=== PATIENT | female | born 1970 | race Caucasian/White ===

== ENCOUNTER 2019-04-26 16:02 | Outpatient (REF) | payer BC, SELFPAY ==
--- NOTE | 2019-04-26 15:30 | PAPFT_PTH ---
PATIENT: Marilee Henderson LOC: [facility] U#:[id number] AGE/SX: 48/F ROOM: RE04/26/[address]: SAMMY Urena : 1970 BED: DIS: 04/26/2019 SPEC #: [id number] RECD: 04/26/19 17:41 STATUS: MITA REJosephine #: [id number] JULIANNE: 04/26/19 15:[address]: Jenae Sahni DEPT: [facility] Cytology RECD BY: Renata Ly ENTERED: 04/26/19 17:41 SP TYPE: PAPFT OTHR DR: Deya Kwok V Tissues: 1 - CX/ENDOCX FOR PAP SMEARS Procedures: PAP THIN PREP/UVM Screening HPV DNA PROBE Comments: [id number]
== END 2019-04-26 16:22 ==
LOC: LBN 16:02
PROVIDERS: PCP Family Medicine; Visit Provider Nurse Practitioner Family
DX: Z12.4 Encounter for screening for malignant neoplasm of cervix (principal); Z11.51 Encounter for screening for human papillomavirus (HPV)
CPT/HCPCS: 88142; 87624

== ENCOUNTER 2019-04-30 01:57 | Outpatient (CLI) | payer BC, SELFPAY ==
--- NOTE | 2019-04-30 15:30 | DI.MAMMO_ITS ---
SYMPTOM/DIAGNOSIS: SCREENING, Z12.31 MAMMOGRAMS: Mammograms were interpreted according to the usual protocol including computer analysis with CAD system, tomosynthesis and C view imaging. Comparison is made with 2016. The breasts are composed of heterogeneously dense fibroglandular tissue, breast density, Category C. No suspicious masses or suspicious microcalcifications are seen. There has been no significant change. IMPRESSION: Category 1, negative mammogram. Yearly screening mammography is recommended. [facility] ASSESSMENT OF FINDINGS: Negative. Category 1. Patient will receive a letter notifying them of these results. Bi-RADS category C. The breasts are heterogeneously dense, which may obscure small masses.
== END 2019-04-30 02:17 ==
PROVIDERS: PCP Family Medicine; Visit Provider Nurse Practitioner Family
DX: Z12.31 Encounter for screening mammogram for malignant neoplasm of breast (principal)
CPT/HCPCS: 77063; 77067

== ENCOUNTER 2021-07-17 01:58 | Outpatient (CLI) | payer BC, SELFPAY ==
--- NOTE | 2021-07-17 13:01 | DI.MAMMO_ITS ---
Exam(s) MAMMO SCREENING EXAM: MAMMO SCREENING CLINICAL HISTORY: screening TECHNIQUE: Bilateral full field digital CC and MLO mammographic images were obtained with 3D tomosyn thesis and utilizing computer aided detection (CAD). COMPARISON: Available for comparison. FINDINGS: Masses/Architectural Distortion: None seen. Microcalcifications: No suspicious pleomorphic-type are seen. Skin Thickening/Nipple Retraction: None. IMPRESSION: 1. No significant interval change with no specific features of malignancy noted. 2. Unless there is more urgent need, screening mammography is recommended, as per [employer] guidelines. BI-RADS Category 1 - Negative Breast Density - Category C - Heterogeneously dense Breast density category C or D implies that the patient has dense breast tissue. Dense breast tissue is very common and is not abnormal but dense breast tissue can make it harder to find cancer on a ma mmogram. Also, dense breast tissue may increase their breast cancer risk. This information about the result of the mammogram report was provided to the patient to raise their awareness. Use this report when you speak with the patient about their risks for breast cancer, which includes their family hist ory. At that time, you may recommend for more screening tests (Ultrasound or MRI) as they might be us eful based on their risk. A negative radiographic report should not delay biopsy if a dominant or clinically suspicious mass is present. Up to ten percent of cancers are not identified on mammography. A negative report may reinforce clinical impression. Adenosis and dense breasts may obscure an underlying neoplasm. False positive reports average 6 to 10%. Patient will receive a letter notifying them of these results.
== END 2021-07-17 02:18 ==
PROVIDERS: PCP Family Medicine; Visit Provider Nurse Practitioner Family
DX: Z12.31 Encounter for screening mammogram for malignant neoplasm of breast (principal)
CPT/HCPCS: 77063; 77067

== ENCOUNTER 2022-07-09 15:09 | Outpatient (REF) | payer BC, SELFPAY ==
--- NOTE | 2022-07-09 14:00 | PAPFT_PTH ---
PATIENT: Marilee Henderson LOC: [facility] U#:[id number] AGE/SX: 51/F ROOM: RE07/09/[address]: SAMMY Urena : 1970 BED: DIS: 07/09/2022 SPEC #: [id number] RECD: 07/09/22 17:28 STATUS: MITA REQ #: [id number] JULIANNE: 07/09/22 14:[address]: Jenae Sahni DEPT: [facility] Cytology RECD BY: Renata Ly ENTERED: 07/09/22 17:29 SP TYPE: PAPFT OTHR DR: Deya Kwok V Tissues: 1 - CX/ENDOCX FOR PAP SMEARS Procedures: PAP THIN PREP/UVM Screening HPV DNA PROBE Comments: [id number]
== END 2022-07-09 15:10 | disposition home or self-care (01) ==
LOC: LBN 15:09
PROVIDERS: PCP Family Medicine; Visit Provider Nurse Practitioner Family
DX: Z12.4 Encounter for screening for malignant neoplasm of cervix (principal); Z11.51 Encounter for screening for human papillomavirus (HPV)
CPT/HCPCS: 88142; 87624

== ENCOUNTER → 2022-08-09 00:07 | Outpatient (CLI) | payer BC, SELFPAY ==
--- OUTSIDE RECORDS SUMMARY | 2022-08-09 00:08 | XMS_ITS | Encounter Summary ---
:1970 Author Organization [facility] Address [address] [place] [address] Care Team Providers Name Role Phone Unavailable Primary Care Provider Unavailable Encounter Details Date Type Department Care Team Description 01/28/2006 Results Only [facility] - Rama Marin CNM conversion [address] [place] [address] [place], [place] [id number] [phone] Social History Tobacco Use Types Packs/Day Years Used Date Never Assessed Sex Assigned at Date Recorded Not on file documented as of this encounter Plan of Treatment Not on filedocumented as of this encounter Procedures Procedure Name Priority Date/Time Associated Diagnosis Comme nts CYTOPATHOLOGY Routine 01/28/2006 0:00 EST Results for this procedure are i n the results section . documented in this encounter Results CYTOPATHOLOGY (01/28/2006 0:00 EST) Pathology Report: CYTOPATHOLOGY REPORT [facility] Reports generated via electronic interface contain sarah ginal data; however they are lacking the format of the original re port. Caution should be taken when reading/interpreting unfo rmatted reports. Name: ? TIARA PAULSON ? Accession #: ? [id number] : ? 1970 (Age: 35) ??F ?Collect Date: ? 01/15 Location: ? [facility] ? Receive Date : ? 01/29/2006 Provider: ?RAMA KEVIN CNM Copy to: ? Specimen/Source: ? ThinPrep Pap Test, Cervix/Endocervix, processed on [employer] ThinPrep Imaging System, with manual evaluation Last Menstrual Period: ? 11/24/04 Menstrual/ Status: ? Post : del 08/30/05 Hormonal/Contraceptive Status: ? Intrauterine device Other: ? HPVA - HPV testing requested if ASC-US on the current ThinPrep Pap test. ? SPECIMEN ADEQUACY ? Satisfactory for Evaluation - transformation zone component present GENERAL CATEGORIZATION ? Negative for Intraepithelial Lesion or Malignan cy INTERPRETATION ? Reactive cellular bárbara nges associated with inflammation present (includes repair). ? Document reviewed and electronically signed by: ? DON FORBES MD ? Report Date: ??02/03/2006 17:06 End of Report Specimen Performing Organization Address City/State/ZIP Code Phon e Number [facility] [address] [place] [address] SERVICES [facility] [address] [place] [address] documented in this encounter Visit Diagnoses Not on filedocumented in this encounter
--- OUTSIDE RECORDS SUMMARY | 2022-08-09 00:08 | XMS_ITS | Encounter Summary ---
:1970 Author Organization [facility] Address [address] [place] [address] Care Team Providers Name Role Phone Unavailable Primary Care Provider Unavailable Encounter Details Date Type Department Care Team Description 03/17/2008 Results Only [facility] - Gumaro Lam MD [facility] [address] [facility] [address] [place], [place] [address] [place] [phone] (Wo rk) Social History Tobacco Use Types Packs/Day Years Used Date Never Assessed Sex Assigned at Date Recorded Not on file documented as of this encounter Plan of Treatment Not on filedocumented as of this encounter Procedures Procedure Name Priority Date/Time Associated Diagnosis Comme [facility] SURGICAL PATHOLOGY Routine 03/17/2008 0:00 EDT Re sults for this procedure are i n the results section. documented in this encounter Results SURGICAL PATHOLOGY (03/17/2008 0:00 EDT) Pathology SURGICAL PATHOLOGY REPORT [facility]: Reports generated via electronic interface contain sarah ginal data; LAB however they are lacking the format of the original re port. Caution should be taken when reading/interpreting unfo rmatted reports. Name: ? TIARA PAULSON ? Accession #: ? [id number] ? : ? 1970 (Age: 37) ??F ? Collect Date: ? 03/17/2008 ? Location: ? [facility] ? Receive Date: ? 008 ? Provider: GUMARO JACKSON MD Copy to: ? Final Pathologic Diagnosis: ? Skin of nose, right side, punch biopsy: - Seborrheic keratosis, irritated and inflamed. Microscopic Description: ? Orthohyperkeratosis a nd focal parakeratosis thicken the stratum corneum. There is formation of horn pseudocysts. ??The epidermi s is hyperplastic with acanthosis and papillomatosis. ??The keratinocyt es have a basaloid appearance with squamous eddies in many areas. ??Wi thin the dermis, there is a moderately dense lymphohistiocytic infi ltrate. ??The infiltrate extends into the epidermis with concomitant vacuolar change and keratinocyte necr osis. ??(Dr. Villarreal)/mpl Document reviewed and electronically signed by: CASA VILLARREAL MD Report ??Date: 03/21/2008 16:33 By the signature above, the attending physician certif ies that he/she has personally conducted a gross and/or microscopic examin ation of the described specimens and rendered or confirmed the above diagnosi s. Specimen(s) Received: ? R side of nose Clinical History: ? R side of nose raised , bleeds, there x a few years, larger, more raised, atypical nevus vs early BCC Gross Description: ? Received in formalin labelled Lancercrispin stein d R side of nose is a punch biopsy of skin which measures 0.2 cm in diameter and 0 .2 cm in depth. ??The cutaneous surface is braun-whi te and mottled. ??Submitted intact in one cassette. (Dr. Hernandez)/mpl End of Report Specimen Performing Organization Address City/State/ZIP Code Phon e Number [facility] [address] [place] [address] SERVICES [facility] [address] [place] [address] documented in this encounter Visit Diagnoses Not on filedocumented in this encounter
--- OUTSIDE RECORDS SUMMARY | 2022-08-09 00:08 | XMS_ITS | Encounter Summary ---
:1970 Author Organization [facility] Address [address] [place] [address] Care Team Providers Name Role Phone Unknown, Provider Primary Care Provider Encounter Details Date Type Department Care Team Description 12/05/2015 Results Only [facility]- Jenae Patel, [facility] [phone] [facility] [facility] [place] [address] (Wo rk) Social History Tobacco Use Types Packs/Day Years Used Date Never Assessed Sex Assigned at Date Recorded Not on file documented as of this encounter Plan of Treatment Not on filedocumented as of this encounter Procedures Procedure Name Priority Date/Time Associated Diagnosis Comme nts PAP TEST- RESULT Routine 12/05/2015 0:00 EST Resu lts for this ONLY procedure are i n the results section. documented in this encounter Results PAP TEST- RESULT ONLY (12/05/2015 0:00 EST) Pathology Report: CYTOPATHOLOGY REPORT [facility] Reports generated via electronic interface contain sarah ginal data; SERVICES however they are lacking the format of the original re port. Caution should be taken when reading/interpreting unfo rmatted reports. Name: ? TIARA PAULSON ? Accession #: ? [id number] ? : ? 1970 (Age: [age]) ??F ?Collect Date: ? 12/05/2015 ? Location: ? [facility] ? Receive Date: ? 12/06/19 16 ? Provider: JENAE GARCIA OIL EXPLORATION ENGINEER Copy to: GUMARO JACKSON MD ? Final Report SPECIMEN ADEQUACY ? Satisfactory for Evaluation - transformation zone component present GENERAL CATEGORIZATION ? Negative for Intraepithelial Lesion or Malignan cy ?? Hormonal/Contraceptive status: Intrauterine device: Mi cris Specimen/Source: ??Pap Test, Cervix/Endocervix, ThinPr ep Imaging System with manual evaluation Document reviewed and electronically signed by: ? Dana Dunham, [facility](ASCP) ? Report ??Date: 12/08/2015 10:03 HPV with Pap Test ? Date Ordered: ? 12/08/2015 ? Status: ?? Signed Out ?Date Complete: ? 12/12/2015 ? By: ??Sy stem Interface ? Date Reported: ? 12/12/2015 ? Interpretation RESULT: Positive for high or intermediate risk HPV. E6 OR E7 mRNA from one or more types of HPV types 16,1 8,31, 33,35,39,45,51,52,56,58,59,66, and 68 is detected by statistical geneticist mediated amplification. High and intermediate risk HPV types are associated wi th most squamous intraepithelial lesions and cervical can cers. Comments Document reviewed and electronically signed by: ? System Interface ? Report date: 12/12/2015 By the signature above, the attending physician certif ies that he/she has personally conducted a gross and/or microscopic examin ation of the described specimens and rendered or confirmed the above diagnosi s. End of Report Specimen Performing Organization Address City/State/ZIP Code Phon e Number [facility] [address] [place], [place] [address] SERVICES documented in this encounter Visit Diagnoses Not on filedocumented in this encounter Care Teams Filing Machine Operator Relationship Specialty Start Date End Date Unknown, Provider, PCP - General 09/23/15 04/27/17 documented as of this encounter
--- OUTSIDE RECORDS SUMMARY | 2022-08-09 00:08 | XMS_ITS | Encounter Summary ---
:1970 Author Organization [facility] Address [address] [place] [address] Care Team Providers Name Role Phone Unavailable Primary Care Provider Unavailable Encounter Details Date Type Department Care Team Description 09/04/2010 Results Only [facility] Veronica Murrell, [facility] - [address] [address] Social History Tobacco Use Types Packs/Day Years Used Date Never Assessed Sex Assigned at Date Recorded Not on file documented as of this encounter Plan of Treatment Not on filedocumented as of this encounter Procedures Procedure Name Priority Date/Time Associated Diagnosis Comme nts CYTOPATHOLOGY Routine 09/04/2010 0:00 EDT Results for this procedure are i n the results section . documented in this encounter Results CYTOPATHOLOGY (09/04/2010 0:00 EDT) Pathology Report: CYTOPATHOLOGY REPORT ? [facility] ? [facility] Reports generated via [employer] interface contain original data; ? however they are lacking the format of the original report. ? Caution should be taken when reading/interpreting unformatted reports. ? Name: ? TIARA PAULSON ? Accession #: ? [id number] ? : ? 1970 (Age: 40) ??F ?Collect Date: ? 09/04/2010 ? Location: ? [facility] ? R eceive Date: ? 09/05/2010 ? Provider: VERONICA M VICTORINO TUNNEL INSPECTOR ? Copy to: ? Final Report ? SPECIMEN ADEQUACY ? Satisfactory for Eval uation ? - transformation zone compon ent present ? GENERAL CATEGORIZATION ? Negative for Intraepi thelial Lesion or Malignancy ? Other: Additional clinical i nformation: Last pap 03/14/06 neg. ? Specimen/Source: ??Pap Test, Cervix/Endocervix, ThinPrep Imaging System with ? manual evaluation ? Document reviewed and electr onically signed by: ? Brant Becerril CT( CP) ? Report ??Date: 10/22/ 2010 14:46 ? HPV with Pap Test ? Date Ordered: ? 1 ? Status: ?? Signed Out ?Date Complete: ? 09/12/2010 ? By: ??System Interface ? Date Reported: ? 09/12/2010 ? Interpretation ? RESULT: Negative for HPV typ es 16, 18, 31, 33, 35, 39, 45, 51, 52, ? 56, 58, 59, and 68. ? Comments ? Document reviewed and electr onically signed by: ? System Interface ? Report date: 10//20 10 ? By the signature above, the attending physician certifies that he/she has ? personally conducted a gross and/or microscopic examination of the described ? specimens and rendered or co nfirmed the above diagnosis. ? End of Report ? Specimen Performing Organization Address City/State/ZIP Code Phon e Number [facility] [address] [place] [address] SERVICES [facility] [address] [place] [address] documented in this encounter Visit Diagnoses Not on filedocumented in this encounter
--- OUTSIDE RECORDS SUMMARY | 2022-08-09 00:08 | XMS_ITS | Encounter Summary ---
:1970 Author Organization [facility] Address [address] [place] [address] Care Team Providers Name Role Phone Deya Kwok MD Primary Care Provider Encounter Details Date Type Department Care Team Description 04/26/2019 Results Only [facility]- Jenae Patel, [facility] [phone] [facility] [facility] [place] [address] (Wo rk) Social History Tobacco Use Types Packs/Day Years Used Date Never Assessed Sex Assigned at Date Recorded Not on file documented as of this encounter Plan of Treatment Not on filedocumented as of this encounter Procedures Procedure Name Priority Date/Time Associated Diagnosis Comme nts PAP TEST- RESULT Routine 04/26/2019 0:00 EDT Resu lts for this ONLY procedure are i n the results section. documented in this encounter Results PAP TEST- RESULT ONLY (04/26/2019 0:00 EDT) Pathology Report: CYTOPATHOLOGY REPORT [facility] Reports generated via electronic interface contain sarah ginal data; SERVICES however they are lacking the format of the original re port. Caution should be taken when reading/interpreting unfo rmatted reports. Name: ? TIARA PAULSON ? Accession #: ? [id number] ? : ? 1970 (Age: [age]) ??F ?Collect Date: ? 04/26/2019 ? Location: ? [facility] ? Receive Date: ? 04/27/20 19 ? Provider: JENAE GARCIA COMPOUNDING ASSISTANT Copy to: DEYA KWOK MD ? Final Report SPECIMEN ADEQUACY ? Satisfactory for Evaluation - transformation zone component present GENERAL CATEGORIZATION ? Negative for Intraepithelial Lesion or Malignan cy INTERPRETATION ? Reactive cellular bárbara nges associated with inflammation present (includes repair). Last Menstrual Period: 04/16/19 Hormonal/Contraceptive status: Intrauterine device: Mi cris Previous Gynecologic Pathology: TABITHA I: 2018 Specimen/Source: ??Pap Test, Cervix, ThinPrep Imaging System with manual evaluation Document reviewed and electronically signed by: ? STEVIE AMATO MD ? Report ??Date: 04/30/2019 10:33 HPV with Pap Test ? Date Ordered: ? 04/30/2019 ? Status: ?? Signed Out ?Date Complete: ? 05/03/2019 ? By: ??Sy stem Interface ? Date Reported: ? 05/03/2019 ? Interpretation RESULT: Negative for HPV. No E6 or E7 mRNA is detected from HPV types 16,18,31,3 3,35, 39,45,51,52,56,58,59,66, and 68 by molder operator media chidi amplification. Comments Document reviewed and electronically signed by: ? System Interface ? Report date: 05/03/2019 By the signature above, the attending physician certif ies that he/she has personally conducted a gross and/or microscopic examin ation of the described specimens and rendered or confirmed the above diagnosi s. End of Report Specimen Performing Organization Address City/State/ZIP Code Phon e Number [facility] [address] [place] [address] SERVICES documented in this encounter Visit Diagnoses Not on filedocumented in this encounter Care Teams Market Analysis Director Relationship Specialty Start Date End Date Deya Kwok MD PCP - General 04/28/[address] [place] [address] documented as of this encounter
--- OUTSIDE RECORDS SUMMARY | 2022-08-09 00:08 | XMS_ITS | Encounter Summary ---
:1970 Author Organization [facility] Address [address] [place] [address] Care Team Providers Name Role Phone Unknown, Provider Primary Care Provider Encounter Details Date Type Department Care Team Description 04/24/2017 Hospital Encounter [facility]- Hedy Unknown, Provider, [facility] [address] [place] [address] [place] [address] (Work) [phone] Social History Tobacco Use Types Packs/Day Years Used Date Never Assessed Sex Assigned at Date Recorded Not on file documented as of this encounter Discharge Disposition Disposition Code Departure Means Destination Home or Self Long-Term documented in this encounter Plan of Treatment Not on filedocumented as of this encounter Visit Diagnoses Not on filedocumented in this encounter Care Teams Glue Jointer Operator Relationship Specialty Start Date End Date Unknown, Provider, PCP - General 09/23/15 04/27/17 documented as of this encounter
--- OUTSIDE RECORDS SUMMARY | 2022-08-09 00:08 | XMS_ITS | Encounter Summary ---
:1970 Author Organization [facility] Address [address] [place] [address] Care Team Providers Name Role Phone Unknown, Provider Primary Care Provider Encounter Details Date Type Department Care Team Description 03/20/2017 Results Only [facility]- Jenae Patel, [facility] [phone] [facility] [facility] [address] [place] [address] (Wo rk) Social History Tobacco Use Types Packs/Day Years Used Date Never Assessed Sex Assigned at Date Recorded Not on file documented as of this encounter Plan of Treatment Not on filedocumented as of this encounter Procedures Procedure Name Priority Date/Time Associated Diagnosis Comme nts PAP TEST- RESULT Routine 03/20/2017 0:00 EDT Resu lts for this ONLY procedure are i n the results section. documented in this encounter Results PAP TEST- RESULT ONLY (03/20/2017 0:00 EDT) Pathology Report: CYTOPATHOLOGY REPORT [facility] Reports generated via electronic interface contain sarah ginal data; SERVICES however they are lacking the format of the original re port. Caution should be taken when reading/interpreting unfo rmatted reports. Name: ? TIARA PAULSON ? Accession #: ? [id number] ? : ? 1970 (Age: [age]) ??F ?Collect Date: ? 2016 ? Location: ? [facility] ? Receive Date: ? 7 ? Provider: JENAE GARCIA INTERLINE CLERK Copy to: MARTHA WALKER MD ? Final Report SPECIMEN ADEQUACY ? Satisfactory for Evaluation - transformation zone component present GENERAL CATEGORIZATION ? Negative for Intraepithelial Lesion or Malignan cy INTERPRETATION ? Reactive cellular bárbara nges associated with inflammation present (includes repair). Hormonal/Contraceptive status: Intrauterine device: Mi cris Previous Gynecologic Pathology: HPV: + 2016 Specimen/Source: ??Pap Test, Cervix, ThinPrep Imaging System with manual evaluation Document reviewed and electronically signed by: ? ENRIKE ALAS MD ? Report ??Date: 04/01/2017 16:48 HPV with Pap Test ? Date Ordered: ? 04/01/2017 ? Status: ?? Signed Out ?Date Complete: ? 04/02/2017 ? By: ??Sy stem Interface ? Date Reported: ? 04/02/2017 ? Interpretation RESULT: Positive for high or intermediate risk HPV. E6 OR E7 mRNA from one or more types of HPV types 16,1 8,31, 33,35,39,45,51,52,56,58,59,66, and 68 is detected by preflight inspector mediated amplification. High and intermediate risk HPV types are associated wi th most squamous intraepithelial lesions and cervical can cers. Comments Document reviewed and electronically signed by: ? System Interface ? Report date: 04/02/2017 By the signature above, the attending physician certif ies that he/she has personally conducted a gross and/or microscopic examin ation of the described specimens and rendered or confirmed the above diagnosi s. End of Report Specimen Performing Organization Address City/State/ZIP Code Phon e Number [facility] [address] [place] [address] SERVICES documented in this encounter Visit Diagnoses Not on filedocumented in this encounter Care Teams Perl Programmer Relationship Specialty Start Date End Date Unknown, Provider, PCP - General 09/23/15 04/27/17 documented as of this encounter
--- OUTSIDE RECORDS SUMMARY | 2022-08-09 00:08 | XMS_ITS | Encounter Summary ---
:1970 Author Organization [facility] Address [address] [place] [address] Care Team Providers Name Role Phone Deya Kwok MD Primary Care Provider Encounter Details Date Type Department Care Team Description 04/23/2018 Results Only [facility]- Jenae Patel, [facility] [phone] [facility] [place] [address] (Wo rk) Social History Tobacco Use Types Packs/Day Years Used Date Never Assessed Sex Assigned at Date Recorded Not on file documented as of this encounter Plan of Treatment Not on filedocumented as of this encounter Procedures Procedure Name Priority Date/Time Associated Diagnosis Comme nts PAP TEST- RESULT Routine 04/23/2018 0:00 EDT Resu lts for this ONLY procedure are i n the results section. documented in this encounter Results PAP TEST- RESULT ONLY (04/23/2018 0:00 EDT) Pathology Report: CYTOPATHOLOGY REPORT [facility] Reports generated via electronic interface contain sarah ginal data; SERVICES however they are lacking the format of the original re port. Caution should be taken when reading/interpreting unfo rmatted reports. Name: ? TIARA PAULSON ? Accession #: ? [id number] ? : ? 1970 (Age: [age]) ??F ?Collect Date: ? 2017 ? Location: ? [facility] ? Receive Date: ? 8 ? Provider: JENAE GARCIA BOX LINING MACHINE FEEDER Copy to: DEYA KWOK MD ? Final Report SPECIMEN ADEQUACY ? Satisfactory for Evaluation - transformation zone component present GENERAL CATEGORIZATION ? Epithelial Cell Abnormality INTERPRETATION ? Squamous Cell Abnormality - Low grade squamous intraepithelial lesion (LSIL). EDUCATIONAL NOTES/RECOMMENDATIONS ? [facility] recommends foll owing ASCCP's 2012 Updated Consensus Guidelines for the Management of Abnormal Cervical Cancer Screening T ests and Cancer Precursors (JLGTD, 2013; 17(5):S1-S27). ??Conse nsus guidelines are available online at www.asccp.org. Hormonal/Contraceptive status: Intrauterine device Treatment History: Biopsy: Neg 2017 ECC: Neg 2017 Infection History: Pos for HPV: 2016, 2017 Specimen/Source: ??Pap Test, Cervix, ThinPrep Imaging System with manual evaluation Document reviewed and electronically signed by: ? HELIO TOPETE MD ? Report ??Date: 04/30/2018 11:23 HPV with Pap Test ? Date Ordered: ? 04/30/2018 ? Status: ?? Signed Out ?Date Complete: ? 05/01/2018 ? By: ??Sy stem Interface ? Date Reported: ? 05/01/2018 ? Interpretation RESULT: POSITIVE FOR HIGH OR INTERMEDIATE RISK HPV. E6 OR E7 mRNA from one or more types of HPV types 16,1 8,31, 33,35,39,45,51,52,56,58,59,66, and 68 is detected by chair mender mediated amplification. High and intermediate risk HPV types are associated wi th most squamous intraepithelial lesions and cervical can cers. Comments Document reviewed and electronically signed by: ? System Interface ? Report date: 05/01/2018 By the signature above, the attending physician certif ies that he/she has personally conducted a gross and/or microscopic examin ation of the described specimens and rendered or confirmed the above diagnosi s. End of Report Specimen Performing Organization Address City/State/ZIP Code Phon e Number [facility] [address] [place] [address] SERVICES documented in this encounter Visit Diagnoses Not on filedocumented in this encounter Care Teams Lay Out Technician Relationship Specialty Start Date End Date Deya Kwok MD PCP - General 04/28/17 [address] [place], [place] [id number] documented as of this encounter
--- OUTSIDE RECORDS SUMMARY | 2022-08-09 00:08 | XMS_ITS | Encounter Summary ---
:1970 Author Organization [facility] Address [address] [place] [address] Care Team Providers Name Role Phone Deya Kwok MD Primary Care Provider Encounter Details Date Type Department Care Team Description 04/23/2018 Hospital Encounter [facility]- Hdey Unknown, Provider, Benitez Ceres 0 [facility] [phone] [place] [address] (Work) [phone] Social History Tobacco Use Types Packs/Day Years Used Date Never Assessed Sex Assigned at Date Recorded Not on file documented as of this encounter Discharge Disposition Disposition Code Departure Means Destination Home or Self Jail documented in this encounter Plan of Treatment Not on filedocumented as of this encounter Visit Diagnoses Not on filedocumented in this encounter Care Teams Meat Butcher Relationship Specialty Start Date End Date Deya Kwok MD PCP - General 04/28/17 [address] [place] [address] documented as of this encounter
--- OUTSIDE RECORDS SUMMARY | 2022-08-09 00:08 | XMS_ITS | Encounter Summary ---
:1970 Author Organization [facility] Address [address] [place] [address] Care Team Providers Name Role Phone Deya Kwok MD Primary Care Provider Encounter Details Date Type Department Care Team Description 05/12/2018 Results Only [facility]- Hui Caballero MD [phone] [address] [place], [place] [phone] (Wo rk) Social History Tobacco Use Types Packs/Day Years Used Date Never Assessed Sex Assigned at Date Recorded Not on file documented as of this encounter Plan of Treatment Not on filedocumented as of this encounter Procedures Procedure Name Priority Date/Time Associated Diagnosis Comme [facility] SURGICAL PATHOLOGY Routine 05/12/2018 21:22 Resul ts for this EDT procedure are i n the results section. documented in this encounter Results SURGICAL PATHOLOGY (05/12/2018 21:22 EDT) Pathology SURGICAL PATHOLOGY REPORT [facility] [[email or web address]] MEDICAL Report: Reports generated via electronic interface conta in original data; CENTER LABORATORY however they are lacking the format of the original re port. SERVICES Caution should be taken when reading/interpreting unfo rmatted reports. Name: ? TIARA PAULSON ? Accession #: ? [id number] ? : ? 1970 (Age: 6 5) ??F ? Collect Date: ? 05/12/2018 ? Location: ? [facility] ? Receive Date: ? 05/12/20 18 ? Provider: HUI WHITMORE MD Copy to: DEYA KWOK MD ? Final Pathologic Diagnosis: A. ENDOCERVIX, CURETTAGE: - Fragments of benign endocervical mucosa. B. CERVIX, 6 O'CLOCK, BIOPSY: - Low grade squamous intraepithelial lesion (TABITHA I). S ee comment. Comment: Deeper levels have been examined on A1 and B1. Represe ntative slides of this case were reviewed at intradepartmental consultation c onference. ?? Dr. Woodward 05/14/2018 4:47 PM Document reviewed and electronically signed by: MARIA E KHAN MD Report ??Date: 05/15/2018 14:09 By the signature above, the attending physician certif ies that he/she has personally conducted a gross and/or microscopic examin ation of the described specimens and rendered or confirmed the above diagnosi s. Specimen(s) Received: A. ??Endocervical curettage B. ??6 o'clock cervical biopsy Clinical History: LSIL Pap Gross Description: A. ?Received in formalin labelled with proper p atient identification (initials Y, P) and ECC is an aggregate of blood-tinged mucus (2.0 x 1.5 x 0.3 cm). Submitted in toto in block A1. B. ?Received in in formalin label led with proper patient identification (initials Y, P) and cervix six o'clock biopsy is an aggregate of soft braun-pink tissue measuring 0.4 x 0.3 x 0.1 cm. Specimen is submitted entirely in block B1 following filtration. JAY Mohan (ASCP) 05/13/2018 8:06 AM End of Report Specimen Performing Organization Address City/State/ZIP Code Phon e Number [facility] [address] [place] [address] SERVICES documented in this encounter Visit Diagnoses Not on filedocumented in this encounter Care Teams Wirer Relationship Specialty Start Date End Date Deya Kwok MD PCP - General 04/28/[address] [place] [address] documented as of this encounter
--- OUTSIDE RECORDS SUMMARY | 2022-08-09 00:08 | XMS_ITS | Encounter Summary ---
:1970 Author Organization [facility] Address [address] [place] [address] Care Team Providers Name Role Phone Deya Kwok MD Primary Care Provider Encounter Details Date Type Department Care Team Description 07/10/2022 Lab Requisition [facility] Jenae Sahni E ncounter for other Pathology & FOUNDER AND CHIEF EXECUTIVE OFFICER general examination Laboratory Medicine [address] [place], [place] [address] [facility] [phone] [place], [place] [id number] Social History Tobacco Use Types Packs/Day Years Used Date Never Assessed Sex Assigned at Date Recorded Not on file documented as of this encounter Plan of Treatment Not on filedocumented as of this encounter Procedures Procedure Name Priority Date/Time Associated Comments Diagnosis PAP TEST Today 07/09/2022 2:00 Encounter for other Resul ts for this EDT general examination procedur e are in the results section. HUMAN PAPILLOMAVIRUS Today 07/09/2022 2:00 Encounter for oth er Results for this (HPV) DETECTION-HIGH EDT general examination procedure are in RISK TYPES the results section. documented in this encounter Results HUMAN PAPILLOMAVIRUS (HPV) DETECTION-HIGH RISK TYPES (07/09/2022 2:00 EDT) Human Papillomavirus NegativeComment: No Negative [facility] (HPV) Detection-High E6 or E7 mRNA is CENTER LABORATOR Y Types detected from HPV SERVICES types 16,18,31,33,35,39,45 ,51,52,56,58,59,66, and 68 by supervisor furnace room mediated amplification. Specimen Pap Test - Cervix and/or Endocervix Performing Organization Address City/State/ZIP Code Phon e Number [facility] [address] [place] [address] SERVICES PAP TEST (07/09/2022 2:00 EDT) Specimens A. Cervix and/or [facility] Endocervix , ThinPrep CENTER Imaging System with LABORATORY Manual Evaluation SERVICES Specimen Adequacy Satisfactory for [facility] MEDICAL Evaluation - CENTER transformation zone LABORATORY component present SERVICES General Negative for [facility] intraepithelial [place] lesion or malignancy LABORATORY SERVICES Attestation . [facility] CENTER signed by SLOANE Wen CT(ASCP) o n SERVICES 07/18/2022 at 201 3 Clinical History See below [facility] SERVICES HPV The result for the Human Pap illomavirus (HPV) Detection-High Risk Types is Negative. No E6 or E7 mRNA is detected from HPV types 16,18,31,33,35,39,45,51,52,56,58,59,66, and 68 by supervisor furnace room mediated [facility] amplification.Testing was pe rformed on specimen [id number] and was resulted on 07/18/20221957 EDT by RAUL, LAB INSTRUMENT RESULTS IN [facility] SERVICES Performing Lab [facility] SERVICES Scanned Images [facility] SERVICES Specimen Pap Test - Cervix and/or Endocervix Performing Organization Address City/State/ZIP Code Phon e Number [facility] [address] [place] [address] SERVICES documented in this encounter Visit Diagnoses Diagnosis Encounter for other general examination documented in this encounter Care Teams Textile Engraver Relationship Specialty Start Date End Date Deya Kwok MD PCP - General 04/28/[address] [place] [address] documented as of this encounter
--- OUTSIDE RECORDS SUMMARY | 2022-08-09 00:08 | XMS_ITS | Clinical Summary ---
:1970 Author Organization [facility] Address [address] [place] [address] Care Team Providers Name Role Phone Deya Kwok MD Primary Care Provider Encounters Date Type Specialty Care Team Description 07/10/2022 Lab Requisition Clinical Laboratory Jenae Sahni for other E, MECHANICAL FACILITIES TECHNICIAN general examina tion from Last 3 Months Social History Tobacco Use Types Packs/Day Years Used Date Never Assessed Sex Assigned at Date Recorded Not on file Plan of Treatment Health Maintenance Due Date Last Done Comments Hepatitis C Screen 1970 COVID-19 Vaccine (#1) 01/14/1973 Procedures Procedure Name Priority Date/Time Associated Comments Diagnosis PAP TEST Today 07/09/2022 2:00 Encounter for other Resul ts for this EDT general examination procedur e are in the results section. HUMAN PAPILLOMAVIRUS Today 07/09/2022 2:00 Encounter for oth er Results for this (HPV) DETECTION-HIGH EDT general examination procedure are in RISK TYPES the results section. from Last 3 Months Results PAP TEST (07/09/2022 2:00 EDT) Specimens A. Cervix and/or [facility] Endocervix , ThinPrep CENTER Imaging System with LABORATORY Manual Evaluation SERVICES Specimen Adequacy Satisfactory for [facility] MEDICAL Evaluation - CENTER transformation zone LABORATORY component present SERVICES General Negative for [facility] intraepithelial [place] lesion or malignancy LABORATORY SERVICES Attestation . [facility] Electronically CENTER signed by SLOANE Wen CT(ASCP) o n SERVICES 07/18/2022 at 201 3 Clinical History See below [facility] SERVICES HPV The result for the Human Pap illomavirus (HPV) Detection-High Risk Types is Negative. No E6 or E7 mRNA is detected from HPV types 16,18,31,33,35,39,45,51,52,56,58,59,66, and 68 by metal furniture assembly supervisor mediated [facility] MEDICAL amplification.Testing was pe rformed on specimen [id number] and was resulted on 07/18/20221957 EDT by RAUL, LAB INSTRUMENT RESULTS [facility] SERVICES Performing Lab [facility] SERVICES Scanned Images [facility] SERVICES Specimen Pap Test - Cervix and/or Endocervix Performing Organization Address City/State/ZIP Code Phon e Number [facility] [address] [place] [address] SERVICES HUMAN PAPILLOMAVIRUS (HPV) DETECTION-HIGH RISK TYPES (07/09/2022 2:00 EDT) Human Papillomavirus NegativeComment: No Negative [facility] (HPV) Detection-High E6 or E7 mRNA is CENTER LABORATOR Y Types detected from HPV SERVICES types 16,18,31,33,35,39,45 ,51,52,56,58,59,66, and 68 by metal furniture assembly supervisor mediated amplification. Specimen Pap Test - Cervix and/or Endocervix Performing Organization Address City/State/ZIP Code Phon e Number [facility] [address] [place] [address] SERVICES from Last 3 Months Care Teams Gas Well Pumper Relationship Specialty Start Date End Date Deya Kwok MD PCP - General 04/28/[address] [place] [address]
--- OUTSIDE RECORDS SUMMARY | 2022-08-09 00:08 | XMS_ITS | Encounter Summary ---
:1970 Author Organization [facility] Address [address] [place] [address] Care Team Providers Name Role Phone Deya Kwok MD Primary Care Provider Encounter Details Date Type Department Care Team Description 05/12/2018 Hospital Encounter [facility]- Hedy Unknown, Provider, Benitez Fishers 0 [facility] [phone] [place] [address] (Work) [phone] Social History Tobacco Use Types Packs/Day Years Used Date Never Assessed Sex Assigned at Date Recorded Not on file documented as of this encounter Discharge Disposition Disposition Code Departure Means Destination Home or Self Long-Term documented in this encounter Plan of Treatment Not on filedocumented as of this encounter Visit Diagnoses Not on filedocumented in this encounter Care Teams Case Manager Specialist Relationship Specialty Start Date End Date Deya Kwok MD PCP - General 04/28/17 [address] [place] [address] documented as of this encounter
--- OUTSIDE RECORDS SUMMARY | 2022-08-09 00:08 | XMS_ITS | Encounter Summary ---
:1970 Author Organization [facility] Address [address] [place] [address] Care Team Providers Name Role Phone Unknown, Provider Primary Care Provider Encounter Details Date Type Department Care Team Description 04/24/2017 Results Only [facility]- PRISM Mike Robb MD [phone] [address] [place] [address] Social History Tobacco Use Types Packs/Day Years Used Date Never Assessed Sex Assigned at Date Recorded Not on file documented as of this encounter Plan of Treatment Not on filedocumented as of this encounter Procedures Procedure Name Priority Date/Time Associated Diagnosis Comme [facility] SURGICAL PATHOLOGY Routine 04/24/2017 9:01 EDT Re sults for this procedure are i n the results section. documented in this encounter Results SURGICAL PATHOLOGY (04/24/2017 9:01 EDT) Pathology Report: SURGICAL PATHOLOGY REPORT [facility] Reports generated via electronic interface contain sarah ginal data; LABORATORY however they are lacking the format of the original re port. SERVICES Caution should be taken when reading/interpreting unfo rmatted reports. Name: ? TIARA PAULSON ? Accession #: ? [id number] ? : ? 1970 (Age: 6 4) ??F ? Collect Date: ? 04/24/2017 ? Location: ? [facility] ? Receive Date: ? 7 ? Provider: MIKE ROBB MD Copy to: MARTHA WALKER MD ? Final Pathologic Diagnosis: A. ENDOCERVIX, CURETTAGE: - Superficial strips of benign endocervical cells. B. ECTOCERVIX, 5 O'CLOCK, BIOPSY: - Benign transformation zone mucosa with acute and chr onic cervicitis and reactive changes. Document reviewed and electronically signed by: AIDE OLIVARES MD Report ??Date: 04/29/2017 12:45 By the signature above, the attending physician certif ies that he/she has personally conducted a gross and/or microscopic examin ation of the described specimens and rendered or confirmed the above diagnosi s. Specimen(s) Received: A. ??ECC B. ??5 o'clock ectocervical bx Clinical History: 12/05/2015 and 03/20/2017 Paps (+) HPV; LMP: 04/08/2017; c olposcopy Gross Description: A. ?Received in formalin labelled with proper p atient identification (initials Y, P) and endocer vical curettage is an aggregate of braun clear mucus (1.5 x 1.5 x 0.3 cm). Submitted in toto in A1. B. ?Received in formalin labelled with proper p atient identification (initials Y, P) and ectocer vical bx at 5 o'clock is a single braun-white tissue fragment (0.5 x 0.2 x 0.2 cm). Submitted intact in B1. JAY Gaona (ASCP) 04/25/2017 11:03 AM End of Report Specimen Performing Organization Address City/State/ZIP Code Phon e Number [facility] [address] [place] [id number] SERVICES documented in this encounter Visit Diagnoses Not on filedocumented in this encounter Care Teams Conference And Event Organiser Relationship Specialty Start Date End Date Unknown, Provider, PCP - General 09/23/15 04/27/17 documented as of this encounter
--- NOTE | 2022-08-09 08:15 | DI.MAMMO_ITS ---
Exam(s) MAMMO SCREENING EXAM: MAMMO SCREENING CLINICAL HISTORY: screening,z12.39 TECHNIQUE: Mammograms were interpreted according to the usual protocol including computer analysis w [employer] CAD system, tomosynthesis and C-view imaging. COMPARISON: 2015 through 2020 FINDINGS: The breasts are composed of heterogeneously dense fibroglandular densities, Breast Density category C . No suspicious masses or suspicious microcalcifications are seen. No skin thickening or abnormal axillary lymph nodes are seen. There has been no significant change from prior exams. IMPRESSION: BI-RADS Category 1, Negative mammogram. Yearly screening mammography is recommended. Breast Density Category C, heterogeneously Dense. The mammogram demonstrates the patient's breast tissue is dense. Dense breast tissue is very common a nd is not abnormal but dense breast tissue can make it harder to find cancer on a mammogram. Also, de nse breast tissue may increase breast cancer risk. This information about the result of the mammogram report was provided to the patient to raise their awareness. Use this report when you speak with the patient about their risks for breast cancer, which includes their family history. At that time, you may recommend additional screening tests (Ultrasound or MRI) as they might be useful based on their r isk. A negative radiographic report should not delay biopsy if a dominant or clinically suspicious mass is present. Up to ten percent of cancers are not identified on mammography. A negative report may reinforce clinical impression. Adenosis and dense breasts may obscure an underlying neoplasm. False positive reports average 6 to 10%.
== END ==
PROVIDERS: PCP Family Medicine; Visit Provider Nurse Practitioner Family
DX: Z12.31 Encounter for screening mammogram for malignant neoplasm of breast (principal); R92.8 Other abnormal and inconclusive findings on diagnostic imaging of breast
CPT/HCPCS: 77063; 77067

== ENCOUNTER 2022-09-17 16:08 | Outpatient (REF) | payer BC, SELFPAY ==
[2022-09-17 20:30] LABS: ALT 29 U/L (14-59); AST 27 U/L (15-37); Albumin 4.2 g/dL (3.4-5.0); Alkaline Phosphatase 65 U/L (46-116); Anion Gap 6.7 mmol/L (3-11); BUN 12 mg/dL (7-18); Bilirubin, Total 0.7 mg/dL (0.2-1.0); CO2 29.3 mmol/L (21.0-32.0); CREATININE 1.2 mg/dL (0.55-1.02); Calcium 9.4 mg/dL (8.5-10.1); Calculated LDL 101 mg/dL (<100); Chloride 107 mmol/L (98-107); Cholesterol 204 mg/dL (<200); Estimated GFR 55.15 (mL/min/1.73m2); Glucose 96 mg/dL (74-106); HDL Cholesterol 97 mg/dL (40-60); Potassium 4.1 mmol/L (3.5-5.1); Sodium 143 mmol/L (136-145); Total Protein 7.7 g/dL (6.4-8.2); Triglyceride 30 mg/dL (<150)
== END 2022-09-17 16:09 | disposition home or self-care (01) ==
LOC: NCHCN 16:08
PROVIDERS: PCP Family Medicine; Visit Provider Physician Assistant Medical
DX: Z00.8 Encounter for other general examination (principal)
CPT/HCPCS: 80053; 80061

== ENCOUNTER 2022-11-25 18:02 | Outpatient (REF) | payer BC, SELFPAY | END 2022-11-25 18:03 | disposition home or self-care (01) | LOC: LBN 18:02 | PROVIDERS: PCP Family Medicine; Visit Provider Nurse Practitioner Women's Health | DX: R30.0 Dysuria (principal); N76.0 Acute vaginitis | CPT/HCPCS: 87086; 87480; 87510; 87660 ==

== ENCOUNTER 2023-02-06 10:55 | Day surgery (SDC) | payer BC, SELFPAY ==
--- NOTE | 2023-02-05 20:56 | W.PREOPHP ---
Assessment and Plan Assessment and plan (1) Screening for colon cancer: Status: Acute Assessment and plan: We discussed the role of screening colonscopy as part of routine health maintenance as well as the risks and benefits of the proceedure. We will proceed with colonoscopy as planned. History of Present Illness History of Present Illness Chief Complaint: Screening colonoscopy Narrative: Pt seen at the request of PCP regarding colon cancer screening. Pt has never had colon cancer screening before.? They denies problems with constipation or diarrhea.? They deny any pain or difficulty with bowel movements, or rectal bleeding.? There is no family history of any colon cancer.? Pt has not had any unexplained weight loss.? Their appetite is good.? ?They deny heart, lung, or kidney problems. They are not having heartburn or indigestion. They have not had any prior colo-rectal surgery.? The patient? has not had a prior [place].? No anesthesia in the past.? MOther had bowel issue- intestines flipped over, not cancer (probably a volvulus). ? Occasional hemorrhoids issues-? occ pain and bleeding.? This has been going on since the of her children. 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 Maternal Aunt Breast cancer paternal Social History Smoking/Tobacco Use Status: Never Smoking risk assessment performed?: Yes Alcohol Intake: current Alcohol Intake frequency: 0-2 drinks per day Drug use: Occasionally Substance use type: marijuana Do you feel safe at home: Yes Do you feel safe in your relationship?: Yes History History 3 Para 3 Hx # Term Pregnancies Multiple births Hx # Pregnancies Ectopic pregnancies AB induced Hx Number of Living Children AB spontaneous Meds Allergies and Home Medications Allergies Allergy/AdvReac Type Severity Reaction Status Date / Time No Known Allergies Allergy Verified 02/06/23 12:33 Exam Const General: cooperative, healthy appearing and comfortable Orientation: awake and oriented x3 Eyes General: appearance normal, both eyes and all related structures Conjunctivae: conjunctivae normal Sclera: sclerae normal Resp Effort & Inspection: normal respiratory effort and able to speak in complete sentences Auscultation: clear to auscultation bilaterally Cardio Jugular venous pressure: no JVD Rate: regular rate Rhythm: regular rhythm GI Inspection: non-distended Palpation: soft, no guarding, no hernias and nontender Auscultation: normal bowel sounds Skin General skin exam: normal turgor Neuro General: patient alert, patient awake and patient oriented x3 Cognition: normal cognition Extrem Right lower extremity: no edema Left lower extremity: no edema
--- NOTE | 2023-02-05 20:57 | PDOC.DSDIS_ITS ---
Date of service: 02/06/23 Time of Service: 14:14 Discharge Plan Disposition Patient Disposition: Home Condition: Good Discharge Details Reason For Visit: Screening colonoscopy Attending Provider: Tano Dickens Primary Care Provider: Deya Kwok V Discharge Instructions Additional Instructions: Cleo, your screening colonoscopy today was negative. Your prep was excellent. Everything went very smoothly. Again, I hope you except my apologies for the wait. You should have another screening colonoscopy in 10 years. If you have any questions, please feel free to call me at any time. 1. If tolerated, consume a soft, low fiber diet for 1-2 days. 2. Do not drive, drink alcohol, operate machinery, make critical decisions, or do activities that require coordination or balance for 24 hours. 3. Because air was put into your colon during the procedure, expelling air from your rectum (passing gas or farting) is normal. 4. You may not have a bowel movement for 1-3 days because of the colonoscopy pre p. This is normal. 5. Go directly to the emergency room if you notice any of the following: Develop chills (warm to touch), or if you have a thermometer and your temperature is above 101 Difficulty breathing or difficultly swallowing Persistent vomiting Severe abdominal pain, other than gas cramps Severe chest pain Black, tarry stools Any bleeding ? exceeding one tablespoon 6. Call your physician if the site where your intravenous was started becomes red, swollen, painful, and warm to touch. 7. Your physician has reviewed your pre-procedure medications. Please continue to take those medications as previously ordered. You will be given specific information/education regarding any changes to your medications before leaving. Activity:: Activity as Tolerated Diet:: As Tolerated Discharge Orders Discharge Orders: Discharge Order (Routine); Ordered 02/05/23 Ordered By: Tano Dickens DS: Diagnosis Discharge Diagnosis (1) Screening for colon cancer: Status: Acute Asessment and Plan: Negative screening colonoscopy. Follow-up in 10 years
--- NOTE | 2023-02-05 20:58 | W.COLOREPORT ---
Date of service: 02/06/23 Time of Service: 14:17 Colonoscopy Report Date of procedure: 02/06/23 Pre-op diagnosis general: Screening colonoscopy Post-op diagnosis procedure note: other (Negative screening colonoscopy) Procedure: Colonoscopy Surgeon: Tano Dickens Anesthesia Type: General:No Airway Estimated blood loss (mL): 0 Pathology: none sent Complications: None Disposition: same day Indications: Marilee is a 52 year old woman here for a screening colonoscopy as part of routine health maintenance. Prep: Miralax/Dulcolax Procedure Start Time: 13:43 Procedure End Time: 14:05 Retraction Time: 16 Findings: Normal colonoscopy Procedure Description: After the induction of monitored anesthetic care, and with the patient in left lateral decubitus position, I began by performing an external anorectal exam.? Perineum and skin were normal, as was the anal verge.? There was no evidence of external hemorrhoids.? Next, I performed a digital rectal exam.? I did not appreciate any abnormal findings.? Next, I advanced a colonoscope into the rectal vault.? I performed retroflexion.? I did not see any internal hemorrhoids.? Using insufflation, I then advanced the colonoscope beyond the rectal folds and into the sigmoid colon before advancing towards the cecum.? The quality of the prep was outstanding.? The scope was noted to be in the cecum by identification of the ileocecal valve and appendiceal orifice.? I then began withdrawing the colonoscope using repeated irrigation as necessary for full evaluation of the colonic mucosa. ?Once the scope was withdrawn to the level of the rectum, great care was taken to examine portions of the rectal folds.? Finally, the scope was withdrawn and the patient was brought to the same-day surgery recovery unit as the anesthetic wore off. I did not see any signs of polyps or tumors, or any other abnormalities such as hemorrhoids or diverticulosis. The findings and instructions were shared with the patient prior to discharge.
[2023-02-06 12:34] VITALS: BP 103/71; PULSE 75; RESP 16; TEMP 36.1; O2SAT 100
[2023-02-06] MEDS: Lactated Ringers 1,000 ML 80 ML IV (12:48)
--- NOTE | 2023-02-06 13:18 | W.ANESPRE ---
General Info Date of Service Date Performed: 02/06/23 Height: 5 ft 6 in Weight: 68.9 kg Body Mass Index (BMI): 24.5 Surgical Procedure: Operation Date: 02/06/23 12:40 Proposed Procedure Side Surgeon p Colonoscopy Tano Dickens MD s Possible Internal Hemorrhoid Banding Tano Dickens MD Meds Allergies and Home Medications Allergies Allergy/AdvReac Type Severity Reaction Status Date / Time No Known Allergies Allergy Verified 02/06/23 12:33 Current Visit Medications: Current Medications Generic Name Dose Route Start Last Admin Trade Name Freq PRN Reason Stop Dose Admin Hyoscyamine Sulfate 0.125 mg 02/05/23 21:00 Hyoscyamine 0.125 Mg Sl/Oral/Chew SL DIRECTED PRN Ringer's Solution 1,000 mls @ 80 mls/hr 02/06/23 06:00 02/06/23 12:48 IV 03/07/23 23:59 80 mls/hr INFUSION CAMILA Administration IV Miscellaneous Supplies 1 each 02/06/23 06:00 Iv Access IV 03/07/23 23:59 DIRECTED CAMILA Ondansetron HCl 4 mg 02/05/23 21:00 Ondansetron 4 Mg/2 Ml Vial IVP Q4H PRN PRN Nausea / Vomiting Sodium Chloride 0 ml 02/06/23 06:00 Normal Saline Flush 10 Ml Syr IV 03/07/23 23:59 PRN PRN Sodium Chloride 0 ml 02/06/23 06:00 Normal Saline 10 Ml Vial IJ 03/07/23 23:59 DIRECTED PRN Sterile Water 0 ml 02/06/23 06:00 Water,Injection,Sterile 10 Ml Vial IJ 03/07/23 23:59 DIRECTED PRN PFSH Active Problems Active Problems: Problem Status Onset Code Screening for colon cancer Z12.11 IUD surveillance 12/05/15 Z30.431 Medical History Medical History Encounter for intrauterine device placement (~2012) 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) neg cytology/(+)HR HPV 2015 and 2016 Tobacco Smoking/Tobacco Use Status: Never Alcohol Alcohol Intake: current Alcohol intake frequency: 0-2 drinks per day Substance Use Substance use: Occasionally Substance use type: marijuana Prental History History 3 Para 3 Hx # Term Pregnancies Multiple births Hx # Pregnancies Ectopic pregnancies AB induced Hx Number of Living Children AB spontaneous Vital Signs and Lab Results Vital Signs Most Recent Vital Signs in EMR: Most Recent Vital Signs Temp Pulse Resp BP Pulse Ox 36.1 C L 75 16 103/71 100 02/06/23 12:34 02/06/23 12:34 02/06/23 12:34 02/06/23 12:34 02/06/23 12:34 Lab Results Blood Type / Crossmatch: No Data to Display Complete Blood Count: No Data to Display Complete Metabolic Panel: No Data to Display Liver Function Panel: No Data to Display Coagulation Panel: No Data to Display Cardiac Panel: No Data to Display Arterial Blood Gas: No Data to Display Venous Blood Gas: No Data to Display Pancreas Panel: No Data to Display Thyroid Panel: No Data to Display Infectious Disease: No Data to Display Blood Cultures: No Data to Display Toxicology Panel: No Data to Display Panel: No Data to Display Anesthesia Assessment and Plan Anesthesia History Personal History: No History of Anesthesia Complications Family History: No Family History of Anesthesia Complications Exercise Tolerance Exercise Tolerance: Metabolic Equivalents>4 Pertinent Negatives Pertinent Negatives: No Symptoms of GERD, No Major Cardiovascular Symptoms or Complaints and No Major Pulmonary Symptoms or Complaints Cardiac & Pulmonary Exam Cardiac Exam: Normal S1/S2 Heart Sounds Pulmonary Exam: Clear Bilateral Breath Sounds Implantable Cardiac Device Does patient have a Pacemaker or an ICD?: No Airway Exam Known Difficult Airway: No Mallampati Class: 1 Mouth Opening: Normal (> 3cm) Thyromental Distance: Greater than 3 cm Neck Range of Motion: Full ROM Neck Circumference: Normal Teeth Condition: Normal Dentition ASA Classification ASA Score: ASA 2 Emergency Case?: No NPO Status NPO Status: NPO Clears >2 hours, Solids >8 hours Status Status: Negative HCG Anesthesia Plan Resuscitation Status: Full Code Anesthesia Technique: General Anesthesia Airway Planned: Natural Airway Monitors Used: Standard Monitors
[2023-02-06 13:20] VITALS: BMI 24.5
[2023-02-06 14:12] VITALS: BP 100/74; PULSE 74; RESP 16; TEMP 36.3; O2SAT 100
--- NOTE | 2023-02-06 14:29 | W.ANESPOSTOP ---
Postoperative Evaluation Date, Time and Location Date Performed: 02/06/23 Time Performed: 14:29 Patient Location: Day Surgery Unit Vital Signs Most Recent Imported Vital Signs: Most Recent Vital Signs Temp Pulse Resp BP Pulse Ox 36.3 C L 74 16 100/74 100 02/06/23 14:12 02/06/23 14:12 02/06/23 14:12 02/06/23 14:12 02/06/23 14:12 Pain Score Most Recent Pain Score: Most Recent Pain Score Pain Level 0 02/06/23 14:12 Assessment Mental Status: Awake (Alert & Oriented to Patient Baseline) Airway and Respiratory Function: Patent airway with normal (patient baseline) respiratory exam Cardiovascular Function: Hemodynamically Stable Hydration Status: Adequately Hydrated Nausea & Vomiting: No Nausea or Vomiting Pain: Pt. Denies Any Pain Peripheral Nerve Block: Patient did not receive a nerve block
[2023-02-06 14:45] VITALS: BP 103/74; PULSE 64; RESP 16; TEMP 36.5; O2SAT 100
== END 2023-02-06 15:00 | disposition home or self-care (01) ==
PROVIDERS: PCP Family Medicine; Visit Provider Surgery
PROC: 0DJD8ZZ Inspection of Lower Intestinal Tract, Via Natural or Artificial Opening Endoscopic (ICD-10-PCS; CPT 45378; principal; 2023-02-06 12:30)
DX: Z12.11 Encounter for screening for malignant neoplasm of colon (principal)
CPT/HCPCS: 45378; J2704

== ENCOUNTER → 2023-12-04 03:51 | Outpatient (CLI) | payer BC, SELFPAY ==
--- NOTE | 2023-12-04 12:15 | DI.MAMMO_ITS ---
Exam(s) MAMMO SCREENING EXAM: MAMMO SCREENING CLINICAL HISTORY: screening TECHNIQUE: Mammograms were interpreted according to the usual protocol including computer analysis w [employer] CAD system, tomosynthesis and C-view imaging. COMPARISON: 2015 through 2021 FINDINGS: The breasts are composed of scattered fibroglandular densities, Breast Density category B. No suspicious masses or suspicious microcalcifications are seen. No skin thickening or abnormal axillary lymph nodes are seen. There has been no significant change from prior exams. IMPRESSION: BI-RADS Category 1, Negative mammogram Yearly screening mammography is recommended. Breast Density - Category B, scattered fibroglandular densities. A negative radiographic report should not delay biopsy if a dominant or clinically suspicious mass is present. Up to ten percent of cancers are not identified on mammography. A negative report may reinforce clinical impression. Adenosis and dense breasts may obscure an underlying neoplasm. False positive reports average 6 to 10%. Patient will receive a letter notifying them of these results.
== END ==
PROVIDERS: PCP Family Medicine; Visit Provider Obstetrics & Gynecology
DX: Z12.31 Encounter for screening mammogram for malignant neoplasm of breast (principal)
CPT/HCPCS: 77063; 77067

== ENCOUNTER 2024-12-27 15:58 | Outpatient (CLI) | payer BC, SELFPAY ==
--- NOTE | 2024-12-27 | DI.RAD_ITS ---
Exam(s) XR WRIST LT COMPLETE EXAM: XR WRIST LT COMPLETE CLINICAL HISTORY: M79.642 Pain in left hand, FOOSH 2 days ago. TECHNIQUE: 2D digital imaging was performed. COMPARISON: No exams were available for comparison FINDINGS: 3 views No evidence of acute fracture nor dislocation. Scaphoid and scapholunate distance unremarkable. The re is mild negative ulnar variance. No obvious degenerative changes in the articulations of the wris t including the 1st carpometacarpal joint. Bone density is normal. IMPRESSION: No acute osseous findings in the left wrist. DATA REPOSITORY: RADIATION DOSE DELIVERED:
--- NOTE | 2024-12-27 | DI.RAD_ITS ---
Exam(s) XR HAND LT COMPLETE EXAM: XR HAND LT COMPLETE CLINICAL HISTORY: M79.642 Pain in left hand, FOOSH 2 days ago, pain LT Thumb,4th 5th Diggs-. TECHNIQUE: 2D digital imaging was performed. COMPARISON: No exams were available for comparison FINDINGS: 3 views No evidence acute fracture or dislocation nor abnormal soft tissue densities. Bone density normal. No osseous lesions erosions. No radiopaque foreign bodies. IMPRESSION: No acute osseous findings in the left hand. DATA REPOSITORY: RADIATION DOSE DELIVERED:
== END 2024-12-27 16:18 ==
PROVIDERS: PCP Family Medicine; Visit Provider Nurse Practitioner Family
DX: M79.642 Pain in left hand (principal)
CPT/HCPCS: 73110; 73130

== ENCOUNTER 2024-12-29 14:42 | Outpatient (REF) | payer BC, SELFPAY ==
--- NOTE | 2024-12-29 14:30 | PAPFT_PTH ---
PATIENT: Marilee Henderson LOC: [facility] U#:[id number] AGE/SX: 54/F ROOM: RE12/29/[address]: Carie Escobar MD : 1970 BED: DIS: 12/29/2024 SPEC #: [id number] RECD: 12/29/24 18:16 STATUS: CHLOÉFlavia REJosephine #: [id number] JULIANNE: 12/29/24 14:[address]: Carie Escobar DEPT: [facility] Cytology RECD BY: Renata Ly ENTERED: 12/29/24 18:17 SP TYPE: PAPFT OTHR DR: Deya Kwok V Tissues: 1 - CX/ENDOCX FOR PAP SMEARS Procedures: PAP THIN PREP/[facility] Screening HPV DNA PROBE Comments: [id number] (HPV 16 & 18/45)
== END 2024-12-29 14:43 | disposition home or self-care (01) ==
LOC: LBN 14:42
PROVIDERS: PCP Family Medicine; Visit Provider Obstetrics & Gynecology
DX: R30.0 Dysuria (principal)
CPT/HCPCS: 87077; 88142; 87086; 87186; 87624

== ENCOUNTER 2025-02-01 00:48 | Outpatient (CLI) | payer BC, SELFPAY ==
--- NOTE | 2025-02-01 12:00 | DI.MAMMO_ITS ---
Exam(s) MAMMO SCREENING EXAM: MAMMO SCREENING CLINICAL HISTORY: screening TECHNIQUE: Mammograms were interpreted according to the usual protocol including computer analysis w [employer] CAD system, tomosynthesis and C-view imaging. COMPARISON: 2015 through 2023 FINDINGS: The breasts are composed of scattered fibroglandular densities, Breast Density category B. No suspicious masses or suspicious microcalcifications are seen. No skin thickening or abnormal axillary lymph nodes are seen. There has been no significant change from prior exams. IMPRESSION: BI-RADS Category 1, Negative mammogram Yearly screening mammography is recommended. Breast Density - Category B, scattered fibroglandular densities. A negative radiographic report should not delay biopsy if a dominant or clinically suspicious mass is present. Up to ten percent of cancers are not identified on mammography. A negative report may reinforce clinical impression. Adenosis and dense breasts may obscure an underlying neoplasm. False positive reports average 6 to 10%. Patient will receive a letter notifying them of these results.
== END 2025-02-01 01:08 ==
LOC: DI 00:48
PROVIDERS: PCP Family Medicine; Visit Provider Obstetrics & Gynecology
DX: Z12.31 Encounter for screening mammogram for malignant neoplasm of breast (principal); R92.323 Mammographic fibroglandular density, bilateral breasts
CPT/HCPCS: 77063; 77067